=== PATIENT | female | born 1985 | race Two or more races ===

== ENCOUNTER 2018-04-07 18:36 | Emergency (ER) | payer MEDICAID ==
[~2018-04-07] VITALS: Ht 157.5 cm; Wt 93.9 kg
[2018-04-07 18:54] VITALS: BP 151/88
[2018-04-07 19:24] LABS: APPEARANCE,URINE SLIGHTLY CLOUDY; BILIRUBIN, URINE NEGATIVE (NEGATIVE); COLOR,URINE PALE YELLOW; GLUCOSE, URINE (UA) NEGATIVE (NEGATIVE); KETONES,URINE NEGATIVE (NEGATIVE); LEUKOCYTE ESTERASE ,URINE 3+ (NEGATIVE); NITRITE,URINE NEGATIVE (NEGATIVE); PH,URINE 6 (4.5-8.0); PROTEIN,URINE 1+ (NEGATIVE); UROBILINOGEN,URINE NORMAL MG/DL (0.0-1.0)
--- NOTE | 2018-04-07 21:37 | Emergency Room Report ---
History of Present Illness General Chief Complaint: Female Urogenital Problems Source: Patient Present Illness HPI 32-year-old female presents to the emergency department complaining of 8 out of 10 in severity dysuria, external vaginal burning and vaginal discharge times one week. Patient states that she recently was treated for UTI and BV in October. 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 Patient denies external vaginal lesions she denies at this time she denies bleeding, swollen tender lymph nodes or joint pain. Patient denies abdominal pain, abdominal tenderness, nausea, vomiting, fevers or chills. Allergies: Coded Allergies: No Known Allergies (Unverified , 04/07/18) Patient History Past Medical History: see triage record Past Surgical History: none Pertinent Family History: none Last Menstrual Period: 03/15/18 Now: No : 1 Para: 1 Reviewed Nursing Documentation: PMH: Agreed; PSxH: Agreed Nursing Documentation-PMH Past Medical History: No History, Except For Review of Systems All Other Systems: negative except mentioned in HPI Physical Exam Vital Signs Date Time Temp Pulse Resp B/P (MAP) Pulse Ox O2 Delivery O2 Flow Rate FiO2 04/07/18 18:44 98.4 92 18 151/88 97 Room Air 98.4 Sp02 EP Interpretation: reviewed, normal General Appearance: no apparent distress, alert, GCS 15, non-toxic Head: normocephalic, atraumatic ENT: hearing grossly normal, normal voice Neck: full range of motion Respiratory: lungs clear, normal breath sounds, speaking full sentences Cardiovascular #1: regular rate, rhythm Gastrointestinal: normal bowel sounds, non tender, soft Rectal: deferred Genitourinary: normal inspection, no CVA tenderness, adnexa normal, cervix normal, ext genitalia/vag normal, other - no CMT Musculoskeletal: back normal, gait/station normal, normal range of motion, non- tender Neurologic: alert, oriented x3, responsive, motor strength/tone normal, sensory intact, speech normal, grossly normal Psychiatric: judgement/insight normal Skin: normal color, no rash, warm/dry, well hydrated Lymphatic: no adenopathy Medical Decision Making PA Attestation Dr. Montenegro is my supervising physician whom pt. management has been discussed with. Diagnostic Impression: Primary Impression: UTI (urinary tract infection) Qualified Codes: N30.01 - Acute cystitis with hematuria Additional Impressions: Vaginal discharge Bacterial vaginosis Trichomonas vaginitis ER Course 32-year-old female presents to the emergency department complaining of 8 out of 10 in severity dysuria, external vaginal burning and vaginal discharge times one week. Patient states that she recently was treated for UTI and BV in October. 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 Patient denies external vaginal lesions she denies at this time she denies bleeding, swollen tender lymph nodes or joint pain. Patient denies abdominal pain, abdominal tenderness, nausea, vomiting, fevers or chills. Ddx considered but are not limited to UTi , Pyelo, STI, Stone, Cystitis, vaginal laceration, vaginitis. Vital signs: are WNL, pt. is afebrile H& PE are most consistent with: Vaginitis ORDERS: - UA labs are attached - Positive for UTI - [place] : Trichomonas, clue cells and yeast ED INTERVENTIONS: -none required at this time. d/w pt. treatment plan, with medications and [employer]FORMATION [employer] follow up. DISCHARGE: At this time pt. is stable for d/c to home. Will provide printed patient care instructions, and any necessary prescriptions. Care plan and follow up instructions have been discussed with the patient prior to discharge. discussed with the patient prior to discharge. Labs Test 04/07/18 19:06 Urine Color Pale yellow Urine Appearance Slightly cloudy Urine pH 6 (4.5-8.0) Urine Specific [place] 1.010 (1.005-1.035) Urine Protein 1+ (NEGATIVE) Urine Glucose (UA) Negative (NEGATIVE) Urine Ketones Negative (NEGATIVE) Urine Occult Blood 3+ (NEGATIVE) Urine Nitrite Negative (NEGATIVE) Urine Bilirubin Negative (NEGATIVE) Urine Urobilinogen Normal MG/DL (0.0-1.0) Urine Leukocyte Esterase 3+ (NEGATIVE) Urine RBC 15-20 /HPF (0 - 2) Urine WBC Tntc /HPF (0 - 2) Urine Squamous Epithelial Cells Moderate /LPF (NONE/OCC) Urine Bacteria Moderate /HPF (NONE) Last Vital Signs Date Time Temp Pulse Resp B/P (MAP) Pulse Ox O2 Delivery O2 Flow Rate FiO2 04/07/18 18:54 98.4 78 18 151/88 97 Room Air 98.4 Disposition: HOME, SELF-CARE Condition: Stable Scripts Metronidazole* (FLAGYL*) 500 Mg Tablet 500 MG ORAL Q12HR for 7 Days, #14 TAB 0 Refills Prov: Karis Mar 04/07/18 Phenazopyridine Hcl* (PYRIDIUM*) 200 Mg Tablet 200 MG ORAL THREE TIMES A DAY for 3 Days, #9 TAB 0 Refills Prov: Karis Mar 04/07/18 Fluconazole (FLUCONAZOLE) 100 Mg Tablet 100 MG ORAL DAILY, #3 TAB 0 Refills Prov: Karis Mar 04/07/18 Nitrofurantoin Monohyd/M-Cryst* (MACROBID 100 MG*) 100 Mg Capsule 100 MG ORAL EVERY 12 HOURS for 5 Days, #10 CAP Prov: Karis Mar 04/07/18 Referrals: NON PHYSICIAN (PCP) Patient Instructions: Urinary Tract Infection Additional Instructions: Take medications as directed. Follow up with a Primary Care Provider in 3-5 days, even if your symptoms have resolved. --Please review list of primary care clinics, if you do not already have a primary care provider Return sooner to ED if new symptoms occur, or current symptoms become worse. - Please note that this Emergency Department Report was dictated using [employer] technology software, occasionally this can lead to erroneous entry secondary to interpretation by the dictation equipment. Karis Mar April 07, 2018 21:37
[2018-04-07] MEDS ORDERED: NITROFURANTOIN100 M2 ORAL (22:28)
[2018-04-07] MEDS ORDERED: PHENAZOPYRIDIN200 MG ORAL (22:28)
[2018-04-07] MEDS ORDERED: FLUCONAZOLE100 MG ORAL (22:28)
[2018-04-07 22:37] VITALS: BP 145/87
[2018-04-07] MEDS ORDERED: METRONIDAZOLE500 MG ORAL (23:17)
== END 2018-04-07 22:40 | disposition home or self-care (01) ==
LOC: EMR 19:26
DX: N39.0 Urinary tract infection, site not specified (principal); N89.8 Other specified noninflammatory disorders of vagina; A59.01 Trichomonal vulvovaginitis
CPT/HCPCS: 81003; 87086; 87210; 99284